=== PATIENT | female | born 1955 | race Caucasian/White ===

== ENCOUNTER 2018-03-13 18:11 | Emergency (ER) | payer OTHER, SELFPAY ==
[2018-03-13] MEDS ORDERED: Morphine 4 MG/ML VIAL ONE ×2 (19:03→20:03)
[2018-03-13] MEDS ORDERED: Ondansetron ODT 4 MG TAB ONE (19:05)
--- NOTE | 2018-03-13 19:46 | CT ---
HEAD CT WITHOUT CONTRAST: HISTORY: Fall. Pain. COMPARISON: None. TECHNIQUE: A noncontrast head CT is performed from the skull base to the skull vertex. FINDINGS: No parenchymal hemorrhage. No extraaxial hematoma. No midline shift. The basilar cisterns are lino nt. Brain volume is age appropriate. Cortical stark white matter differentiation is preserved. The ventricles and sulci are patent and symmetric. White matter hypodensities due to chronic small vessel ischemic change are noted. The calvarium is intact. Appropriate aeration of the sinuses and mastoid air cells. Cavernous carot id atherosclerosis is noted. IMPRESSION: 1. No intracranial posttraumatic sequelae. 2. Age appropriate atrophy. 3. Chronic small vessel ischemic changes of the white matter. POS: [facility]
--- NOTE | 2018-03-13 20:05 | CT ---
CT CERVICAL SPINE WITHOUT CONTRAST: HISTORY: Injury. Pain. COMPARISON: 05/04/2007 TECHNIQUE: A CT cervical spine is performed without contrast. Reformatted images are submitted for interpretati on. FINDINGS: Stable anterolisthesis and fusion changes of the cervical spine. Vertebral body height is maintained . No fracture. No craniocervical dissociation. The lateral masses of C1 and C2 articulate appropriately. The odont oid process is intact. Appropriate articulation of the facets. Soft tissue neck structures are unremarkable. Upper mediastinum and lung apices are unremarkable. Varying degrees of central canal stenosis and foraminal narrowing on the basis of degenerative change . Evaluation is limited due to technique. IMPRESSION: 1. No fracture. 2. Stable chronic degenerative changes. POS: [facility]
--- NOTE | 2018-03-13 20:08 | CT ---
FACIAL CT NONCONTRAST: INDICATIONS: Facial pain. Injury. Fall. FINDINGS: Soft tissue laceration with soft tissue emphysema and surrounding hematoma present at the frontal sca lp with adjacent punctate densities at the skin surface, indicative of debris. Correlate with physic al exam. The underlying frontal calvarium is intact where visualized. No acute fluid level of the i gasper paranasal sinuses. No evidence of a significantly displaced nasal bone fracture. The fuchs of the maxillary sinuses are intact. No retrobulbar hematoma or mass effect. The bilateral orbital wa lls are maintained. The pterygoid plates are intact. No evidence of depressed fracture of either zy gomatic arch. IMPRESSION: Frontal scalp laceration. No underlying acute facial fracture is seen. POS: [facility]
[2018-03-13] MEDS ORDERED: Cyclobenzaprine 10 MG TAB ONE (20:34)
[2018-03-13] MEDS ORDERED: HYDROcodone/Acetaminophen 5/325 mg Tablet ONE (20:34)
[2018-03-13] MEDS ORDERED: Bacitracin Zinc 1 Packet ONE (20:48)
[2018-03-13] MEDS ORDERED: Adacel (T-DAP) 0.5 ML VIAL ONE (20:48)
== END 2018-03-13 21:24 | disposition home or self-care (01) ==
LOC: ERS 18:11
DX: S01.81XA Laceration without foreign body of other part of head, initial encounter (principal); I10 Essential (primary) hypertension; Z87.891 Personal history of nicotine dependence; Z79.899 Other long term (current) drug therapy; W22.8XXA Striking against or struck by other objects, initial encounter
CPT/HCPCS: 12011; 70450; 70486; 72125; 90471; 90715; 96372; J2270; Q0162

== ENCOUNTER 2021-10-19 05:34 | Emergency (ER) | payer MEDICARE ==
[2021-10-19] MEDS ORDERED: Ondansetron PF 4 MG/2 ML Vial ONE (06:26)
[2021-10-19 07:05] LABS: ALT (SGPT) 33 U/L (8-55); AST (SGOT) 25 U/L (5-34); Albumin 4.2 g/dL (3.4-4.8); Alkaline Phosphatase 65 U/L (40-110); Anion Gap 14 mmol/L (10-20); BUN (Urea Nitrogen) 13 mg/dL (9.8-20.1); Bilirubin, Total 0.8 mg/dL (0.2-1.2); Calc. Creatinine Clearance 0 mL/min (70-130); Calcium 9.9 mg/dL (7.8-10.44); Carbon Dioxide 27 mmol/L (23-31); Chloride 102 mmol/L (98-107); Globulin 3.1 g/dL (2.4-3.5); Glucose 158 mg/dL (80-115); Lipase 19 U/L (8-78); Potassium 3.9 mmol/L (3.5-5.1); Protein, Total 7.3 g/dL (5.8-8.1); Sodium 139 mmol/L (136-145)
[2021-10-19 07:13] LABS: #Lymphocytes 1.4 thou/uL (1.20-3.40); #Monocytes 0.3 thou/uL (0.11-0.59); #Neutrophils 7.4 thou/uL (1.40-6.50); %Eosinophils 0.2 % (0.0-10.0); %Lymphocytes 15.7 % (21.0-51.0); %Monocytes 3.3 % (0.0-10.0); %Neutrophils 80.8 % (42.0-75.0); Hemoglobin 15.2 g/dL (12.0-16.0); Mean Corpuscular HGB CONC 33.8 g/dL (32.0-36.0); Mean Corpuscular Volume 94.7 fL (78.0-98.0); Mean Platelet Volume 8.8 fL (7.4-10.4); Platelet Count 196 thou/uL (130-400); Red Blood Cell (RBC) Count 4.76 mill/uL (4.20-5.40); White Blood Cell (WBC) Count 9.1 thou/uL (4.8-10.8)
[2021-10-19 07:34] LABS: Bilirubin Negative (Negative); Blood, Urine Negative (Negative); Clarity Clear (Clear); Glucose, Urine (Dipstick) Normal (Negative); Ketone, Urine Negative (Negative); Leukocyte Negative Leu/uL (Negative); Nitrite Negative (Negative); Protein, Urine (Dipstick) Negative (Neg-Trace); Specific Gravity, Urine 1.018 (1.002-1.036); Urobilinogen Normal mg/dL (Less than 2)
[2021-10-19] MEDS ORDERED: Sucralfate 1 GM/10 ML UDCUP ONE (07:43)
[2021-10-19] MEDS ORDERED: Iopamidol-370 76% 500 ML 1 ML ONE (11:25)
== END 2021-10-19 08:04 | disposition home or self-care (01) ==
LOC: ERS 05:34
DX: K29.70 Gastritis, unspecified, without bleeding (principal); R19.7 Diarrhea, unspecified; I10 Essential (primary) hypertension; Z87.891 Personal history of nicotine dependence; Z79.899 Other long term (current) drug therapy
CPT/HCPCS: 74177; 80053; 81003; 83690; 85025; 93005; 96374; J2405; Q9967

== ENCOUNTER 2021-12-18 08:48 | Outpatient (CLI) | payer MEDICARE | END 2021-12-18 08:49 | disposition home or self-care (01) | LOC: BICMAMMO 08:48 | PROVIDERS: ATTEND Nurse Practitioner Family | DX: Z12.31 Encounter for screening mammogram for malignant neoplasm of breast (principal); Z91.89 Other specified personal risk factors, not elsewhere classified | CPT/HCPCS: 77063; 77067 ==

== ENCOUNTER 2023-01-21 09:55 | Outpatient (CLI) | payer MEDICARE | END 2023-01-21 09:56 | disposition home or self-care (01) | LOC: BICMAMMO 09:55 | PROVIDERS: ATTEND Family Medicine | DX: Z12.31 Encounter for screening mammogram for malignant neoplasm of breast (principal) | CPT/HCPCS: 77063; 77067 ==